=== PATIENT | female | born 1980 | race Caucasian/White ===

== ENCOUNTER 2022-02-16 16:42 | Inpatient (IN) | payer OTHER ==
[~2022-02-16] VITALS: Ht 172.7 cm; Wt 90.6 kg
--- NOTE | 2022-02-16 22:30 | NUR ---
PATIENT ARRIVED VIA STRETCHER WITH PRIMARY ED RN AND RT. PATIENT TRANSFERED TO BED WITH 3 PA. PATIENT TOLERATING VENT; SETTINGS PER RT/ MD ORDER. VS STABLE. SOFT WRIST RESTRAINTS PLACED FOR LINE/TUBE PROTECTION. PROPOFOL AT 40 MCG/KG/MIN PER ED. PATIENT RASS -2. IV SITES WNL X3. IVF STARTED PER ORDER. OG TUBE FLUSHED, DOESN'T HAVE ACTIVE RETURN OF GI CONTENT, 400 MLS OUT PER ED REPORT. 7.5 TUBE; 24 CM AT THE LIP.
--- NOTE | 2022-02-16 23:15 | NUR ---
PATIENT HAD ESTIMATED 100 MLS OF BROWN CHUNKY EMESIS. OG TUBE NOT FUNCTIONING AFTER TROUBLESHHOTING. OG TUBE REPLACED. ORAL CARE DONE. 250MLS GI CONTECT OUT FROM OG. PRN NAUSEA AND SEDATION PROVIDED PER ORDER. PATIENT SETTLED BACK DOWN AND RT CALLED FOR CLEARING OF SECREATIONS STUFF IN VENT TUBING/ ETT. VS STABLE.
--- NOTE | 2022-02-17 00:29 | NUR ---
PATIENT TOLERATING THE VENT WELL. VS STABLE. TITRATED SEDATION FOR RASS GOAL OF -1. SOFT RESTRAINTS PER ORDER. WOUND CARE TO RIGHT FOREARM AND LEFT WRIST.
--- NOTE | 2022-02-17 01:28 | NUR ---
PATIENT REPOSITIONED AND ORAL SUCTIONED DUE TO COUGHING. MINIMAL SECREATIONS. RASS -2. TOLERATING VENT. VS STABLE. IV FLUIDS PER ORDER, SITE WNL. PROPOFOL TITRATED TO 30 MCG/KG/MIN.
--- NOTE | 2022-02-17 02:35 | NUR ---
SCHEDULED MED PTOVIDED. PT RESTING IN BED, EYES CLOSED. NO S/S OF DISCOMFORT. DOOR AND CURTAIN OPEN FOR OBSERVATION. RAILS UP. SANTIAGO FELICIANO.
--- NOTE | 2022-02-17 03:01 | NUR ---
NEW BOTTLEOF PROPOFOL PROVIDED @ 30MCG/KG/MIN. PT APPEARS RESTFUL. DOOR AND CURTAIN OPEN FOR OBSERVATION. RAILS UP.
--- NOTE | 2022-02-17 03:49 | NUR ---
PATIENT REPOSITIONED. RASS -2. PATIENT COUGHING OCCATIONALLY. APPEARS TO BE GAGGING OR HEAVING. PRN COMPAZIE PROVIDED. PATIENT FEELS WARM TO THE TOUCH. AXILLARY TEMP 99.4 F AND HENDERSON TEMPT 100.3 F. COOL WASH CLOTH APPLIED TO FOREHEAD AND PRN TORADOL PROVIED. MODERATE SECREATIONS NOTED INLINE AND ORAL.
--- NOTE | 2022-02-17 05:00 | NUR ---
PATIENT COUGHING AND APPEARS TO BE GAGGING ON TUBE MORE. PRN KETAMINE PER ORDERS. PATIENT DIAPHORETIC. AXILLARY TEMP 99.0 F AND HENDERSON TEMP 99.3 F. VS STABLE. PATIENT PROVIDED WITH BED BATH AND FRESH LINEN. RT IN TO ASSESS SECREATIONS IN TUBE AND PROVIDED SUCTION. ORAL CARE DONE AND LABS DRAWN BY THIS RN VIA BUTTERFLY NEEDLE. PATIENT'S CONTACTS REMOVED AND SALINE DROPS ALLIED TO EYES. RASS -2. PROPOFOL TITRATED TO MAINTAIN GOAL RASS -1.
--- NOTE | 2022-02-17 06:40 | NUR ---
PATIENT TOLERATING VENT. VS STABLE. SOFT BP; MAP > 60. TITRATED PROPOFOL. IV FLUIDS PER ORDER. SITE WNL. HENDERSON EMPTIED AND OG TUBE OUTPUT ACCOUNTED FOR.
--- NOTE | 2022-02-17 07:25 | NUR ---
REPORT RECEIVED, CARE OF PT ASSUMED AT THIS TIME.
--- NOTE | 2022-02-17 07:47 | NUR ---
RT IN ROOM FOR ASSESSMENT AND VENT CHECK AT THIS TIME.
--- NOTE | 2022-02-17 07:58 | NUR ---
ASSESSMENT COMPLETED. PT AT A RASS 0F -2, PROPOFOL INFUSING AT 30 MCG/KGMIN. LUNGS SOUND CLEART THROUGHOUT. HEART RATE IN THE 70S. AXILLARY TEMPERATURE OF 98.5. WRIST RESTRAINTS ASSESSED AND RELEASED.ALL DISTAL PULSES STRONG. PUPILS PINPOINT AND SLUGGISH REACTION TO LIGHT. PLAN ESTABLISHED TO BEGIN LIGHTENING SEDATION FOR SEDATION AWAKENING WITH RT.
--- NOTE | 2022-02-17 09:00 | NUR ---
Pt. remains ventilated.
--- NOTE | 2022-02-17 09:15 | NUR ---
PT WAKING UP, PULLING AT WRIST RESTRAINTS. PT OPENING EYES. DISCUSSED WEANING OFF THE VENTILATOR WITH PT. PT IS NODDING YES THAT SHE UNDERSTANDS. GIVEN PRN KETAMINE AT THIS TIME FOR ANXIETY. THIS RN REMAINS AT BEDSIDE.
--- NOTE | 2022-02-17 09:25 | NUR ---
PT TITRATED DOWN BY TO MCG/KG/MIN OF PROPOFOL DRIP PER VERBAL ORDER FROM DR DERAS.
--- NOTE | 2022-02-17 09:41 | NUR ---
PROPOFOL TITRATED OFF AT THIS TIME. RT AND THIS RN AT [facility]. PT PULLING AT LINES, AND COUGHING BUT RESPONDING TO COMMANDS.
--- NOTE | 2022-02-17 09:51 | NUR ---
PT EXTUBATED AFTER CPAP TRAIL FOR 20 MINUTES. THIS RN, DR DERAS AND RT MIREYA AT BEDSIDE FOR EXTUBATION. PT NOW 99% ON ROOM AIR. RESPIRATIONS EVEN AND UNLABORED. PT ANXIOUS ASKING WHERE SHE IS AND WHAT HAPPENED. PT CONFIRMED IDENTITY WITH PAPER REWINDER AT THIS TIME. HENDERSON CATHETER REMOVED. RESTRAINTS RELEASED. THIS RN REMAINS AT BEDSIDE.
--- NOTE | 2022-02-17 10:25 | NUR ---
IN ROOM WITH PT. PT IS TEARFUL. STATES THAT SHE IS HOMELESS, AND STATES " I DID IT ON PURPOSE. I DIDNT WANT TO BE ALIVE. " PT STATES THAT SHE IS NOT ACTIVELY SUICIDAL AT THIS TIME. DR EDRAS NOTIFIED. VERBAL ORDER FOR A MENTAL HEALTH EVALUATION RECIEVED. PT PLACED ON 15 MINUTE SUICIDE CHECKS AT THIS TIME. [facility] MENTAL HEALTH CRISIS LINE CALLED AND NOTIFIED. PT REMAINS ON CARDAIC MONITOR BUT ROOM OTHER YEUNG CLEARED PER SUICIDE PROTOCOL.
--- NOTE | 2022-02-17 10:36 | NUR ---
[facility] CONTACTED BY ADILSON ZHANG FOR PATIENT. UNDER 1:1 SUPERVISION AT THIS TIME. PAPER FLOWSHEET FOR SAFETY CHECKS AT THIS TIME.
--- NOTE | 2022-02-17 11:31 | NUR ---
PT RESTING IN BED, DROWSY. DENIES NEEDS AT THIS TIME. REMAINS UNDER ONE TO ONE SUPERVISION PER SUICIDE PROTOCOL. ASSESSMENT COMPLETED. LUNGS ARE CLEAR. HEART RATE IN THE 70S A REST. IV FLUIDS INFUSING. WILL CONTINUE TO MONITOR.
--- NOTE | 2022-02-17 12:05 | NUR ---
[facility] LENS GRINDER ROUGH BILL COMPLETED ASSESSMENT OF PATIENT AND AT THIS TIME PT HAS BEEN CLEARED FROM SUICIDE WATCH.
[2022-02-17] MEDS ORDERED: DISKETS40 MG PO (12:37)
--- NOTE | 2022-02-17 12:41 | NUR ---
MED REC COMPLETE
--- NOTE | 2022-02-17 14:16 | NUR ---
PT STATES IV FLUIDS ARE BURNING AT IV SITE. LINE IS PATENT AND FLUSHES WELL. DISCUSSED WITH DR DERAS. PLAN ESTABLISHED TO ATTEMPT TO GET PT TO ADVANCE TO FULL LIQUIDS FOR POSSIBLE DISCHARGE. IF PT IS UNABLE TO TOLERATE ADVANCING DIET PLAN TO START NEW IV. PRIMARY NURSE DEQUAN UPDATED ON PLAN OF CARE.
--- NOTE | 2022-02-17 15:24 | NUR ---
SPOKE WITH ADILSON ZHANG REGARDING PATIENT BEING HOMELESS AT THIS TIME. [facility] CONTACTED FOR VISIT AND RESOURCE INFORMATION. OVER TO SPEAK WITH PATIENT, WHO IS OKAY SPEAKING WITH BALA. [facility]A CARD AND LOCAL RESOURCES GIVEN.
--- NOTE | 2022-02-17 15:29 | EKG ---
[facility] [address] [facility] [place] [address] Signed Sinus tachycardia Minimal voltage criteria for LVH, may be normal variant ( [place] product ) Nonspecific ST abnormality Abnormal ECG No previous ECGs available Confirmed by ABIMAEL DERAS MD ([id number]) on 02/17/2022 3:29:50 PM Electronically Signed By: ABIMAEL DERAS MD 02/17/22 1529 PATIENT NAME: LINDA DOAN Electrocardiogram DATE OF : 82 PHYSICIAN: ABIMAEL DERAS MD REPORT #: [id number] REPORT IS CONFIDENTIAL AND NOT TO BE RELEASED WITHOUT AUTHORIZATION
--- NOTE | 2022-02-17 15:40 | NUR ---
ASSESSMENT COMPLETED. PT AMBULATED TO THE BATHROOM WITH ONE PERSON ASSIST. REPORTS DIZZINESS WITH AMBULATION. NOW BACK IN BED. BALA AT BEDSIDE TO ASSESS PT AT THIS TIME. CALL LIGHT WITHIN REACH. WILL CONTINUE TO MONITOR.
--- NOTE | 2022-02-17 15:52 | NUR ---
KATHIE AT POSION CONTROL UPDATED ON PT CONDITION.
--- NOTE | 2022-02-17 17:45 | NUR ---
PT'S IV SITES INFLITRATED. IV'S DC'D AND NEW IV INITATED IN LEFT FOOT. WELL TOLERATED BY PT.
--- NOTE | 2022-02-17 19:56 | NUR ---
PATIENT IN BED. ALERT AND ORIENTED X4. DENIES SOB, PAIN, SI, HI, OR S/S OF WITHDRAWL. CALL LIGHT AND BELONGINS IN REACH. CAN MAKE NEEDS KNOWN.
--- NOTE | 2022-02-17 21:57 | NUR ---
PATIENT ATE 1005 OF DINNER TRAY. DENIES NEEDS AT THIS TIME.
--- NOTE | 2022-02-18 02:00 | NUR ---
PATIENT RESTING IN BED WITH EYES CLOSED. RESPIRATIONS EVEN AND UNLABORED. AWAKES TO NOISE. CALL LIGHT IN REACH.
--- NOTE | 2022-02-18 04:57 | NUR ---
PATIENT AMBULATED TO THE BATHRROM INDEPNDENTLY. VOIDED LARGE URINE AMOUNT. DENIES PAIN OR OTHER NEEDS AT THIS TIME. CALL LIGHT IN REACH.
--- NOTE | 2022-02-18 07:30 | NUR ---
PATIENT SHIFT REPORT RECIEVED FROM INDUSTRIAL AERIAL INSTALLER RN. PATIENT RESTING IN BED AT THIS TIME. PATIENT CALLS APPROPRIATELY. WILL CONTINUE TO CLOSELY MONITOR.
--- NOTE | 2022-02-18 08:51 | NUR ---
PATIENT ASSESSMENT COMPLETED. PATIENT BREATH SOUND CLEAR. RR- 16. PATIENT BOWEL TONES ACTIVE. PATIENT RESTING IN BED AT THIS TIME. IV IN PATIENTS FOOT INFUSING WITH NO ISSUES. PATIENT MOVED HERSELF UP IN BED AND IS NOW WORKING ON [employer]. PATIENT DENIES ANY OTHER NEEDS AT THIS TIME. WILL CONTINUE TO CLOSELY MONITOR.
--- NOTE | 2022-02-18 08:59 | NUR ---
CALL PLACED TO [facility] CRISIS TO RE EVAL PT NOW THAT SHE IS MEDICALLY CLEARED.
--- NOTE | 2022-02-18 10:15 | NUR ---
PATIENT UP TO HTE SHOWER WITH BUSINESS ANALYST [employer]PER[employer] TIA. NEW LINEN ON PATIENTS BED. WAITING FOR [facility] TO COME ASSES PATIENT FOR DISCHARGE.
--- NOTE | 2022-02-18 10:44 | NUR ---
ASSISTED PT TO BATHROOM TO ROOM 118 TO SHOWER. PT TRANSERED TO WHEELCHAIR AFTER L FOOT IV WAS COVERED. SET PT UP IN SHOWER W/SHAMPOO/CONDITIONER, SOP, TOOTHBRUS/TOOTHPASTE. PT DID CARES INDEPENDENTLY WHILE I STOOD BY DOORWAY UNTIL SHE FINISHED. PT DRESSED IN PAPER SCRUBS BROUHT BY RN, TOP TOO SMALL SO I GAVE HER A GOWN TO USE UNTIL WE COULD GET A BIGGER TOP. I REMOVED HER COVER ON FOOT AFTER SHE WAS BACK IN THE WHEELCHAIR, WHEELED HER BACK TO HER ROOM IN [facility] WHERE RN HAD CHANGED HER LINENS. GOT PT A WARM BLANKET. SHE WAS LYING ON RIGHT SIDE ON BED. [facility] IN ROOM. CALL LIGHT IN REACH.
[2022-02-18] MEDS ORDERED: BACTRIM DS TAB1 EACH PO (11:31)
--- NOTE | 2022-02-18 13:00 | NUR ---
REVIEWED DISCHARGE INSTRUCTIONS WITH PATIENT. PATIENT UP TO THE BATHROOM AND DRESSED. IV REMOVED. PATIENT ASSISTED INTO WHEELCHAIR. [employer] WAS CALLED. PATIENT SENT WITH EDUCATION MATERIAL AND PRESCRIPTION. PATIENT DENIES ANY OTHER NEEDS AT THIS TIME. THIS RN WHEELED PATIENT TO THE FRONT AND ASSISTE DPATIENT INTO THE TAXI.
== END 2022-02-18 12:50 | disposition home or self-care (01) | DRG 917 ==
LOC: ED 16:42 → CCU 20:44 → EDBD 20:44 → CCU 02-18 12:50
PROVIDERS: ADMIT Internal Medicine; ATTEND Internal Medicine
PROC: 5A1935Z Respiratory Ventilation, Less than 24 Consecutive Hours (ICD-10-PCS; principal; 2022-02-16)
PROC: 0BH17EZ Insertion of Endotracheal Airway into Trachea, Via Natural or Artificial Opening (ICD-10-PCS; 2022-02-16)
DX: T45.0X2A Poisoning by antiallergic and antiemetic drugs, intentional self-harm, initial encounter (principal); G92.9 Unspecified toxic encephalopathy; L03.113 Cellulitis of right upper limb; E87.2 Acidosis; F31.9 Bipolar disorder, unspecified; Z59.00 Homelessness unspecified; E87.6 Hypokalemia; E83.42 Hypomagnesemia; D72.829 Elevated white blood cell count, unspecified; I10 Essential (primary) hypertension; Z20.822 Contact with and (suspected) exposure to COVID-19; F11.10 Opioid abuse, uncomplicated
CPT/HCPCS: 31500; 36415; 36600; 51702; 70450; 71045; 80048; 80053; 81001; 82553; 82803; 83605; 83735; 84703; 85025; 85060; 87502; 93005; 93010; 94002; 94003; 97161; 99285-25; A9270; C9113; C9803; G0480; J0780; J1650; J1885; J2250; J2405; J2550; J2704; J3475; J3480; J7030; J7121; U0003